=== PATIENT | male | born 1995 | race Caucasian/White ===

== ENCOUNTER 2022-06-09 15:31 | Emergency (ER) | payer OTHER, SELFPAY ==
[2022-06-09 15:35] VITALS: BP 167/100; PULSE 93; RESP 14; TEMP 36.7; O2SAT 97; BMI 31.5
[2022-06-09 16:10] VITALS: BP 134/88; PULSE 76; O2SAT 99
--- NOTE | 2022-06-09 16:22 | W.ED.ABDPA2 ---
HPI - Abdominal Pain General: Chief Complaint: Abdominal Pain Stated Complaint: abd pain Time Seen by Provider: 06/09/22 15:43 History of Present Illness: 26-year-old male who comes in with diffuse abdominal pain and associated diarrhea with nausea. The patient states he drank a large amount of alcohol 2 nights ago. Since that time, he started having crampy diffuse abdominal pain with associated diarrhea. He states had multiple episodes of diarrhea. He is also had associated nausea. He has been drinking fluids but feels like everything is running right through him. He denies melanotic stools or bright red bloody stools. No fever. No prior history of pancreatitis. He denies dysuria or hematuria. Associated Symptoms: Denies fever(s) and vomiting Review of Systems Const: Denies: fever(s) ENMT: Denies: throat pain, ear or mastoid pain, nasal discharge, nasal congestion or sinus pain Card: Denies: chest pain Resp: Denies: dyspnea or wheezing GI: Denies: vomiting Musc: Reports: extremity pain Skin/Breast: Denies: rash Neuro: Denies: headache(s) Psych: Reports: other (Admits to regular alcohol use. Denies daily use.) PFS ED PFSH: Social History Smoking and tobacco status: current every day smoker Alcohol intake: current Physical Exam Const: COMMON NORMALS: no acute distress, patient oriented x3 and healthy appearing GENERAL APPEARANCE: cooperative and comfortable HENMT: OTHER: Mucous membranes are dry. Eye: OTHER: No scleral icterus Resp: COMMON NORMALS: clear to auscultation bilaterally AUSCULTATION: clear to auscultation bilaterally Cardio: COMMON NORMALS: regular rate and regular rhythm RATE: regular rate RHYTHM: regular rhythm GI: OTHER: Normal bowel sounds, abdomen is nondistended. Bilateral lower quadrant abdominal tenderness. No rebound or guarding. Extremity: OTHER: All extremities have full range of motion. He has no peripheral edema. Neuro: COMMON NORMALS: patient oriented x3 Psych: COMMON NORMALS: speech normal SPEECH: Yes normal speech Course Reevaluation(s): Reevaluation #1: Patient complains of persistent lower abdominal pain. Labs are unremarkable. No further vomiting or diarrhea. We will do CT and give him IV morphine. Time: 18:40 Reevaluation #2: Pain is resolved. No further diarrhea. CT shows changes consistent with possible terminal ileitis versus enteritis. Suspect this is more an enteritis type illness. Recommend the patient takes Imodium 4 times daily as needed for diarrhea. He needs to take a daily probiotic. I have instructed him to avoid alcohol, spicy foods, greasy foods, milk products. He should return if his symptoms are worsening. If he has recurrent episodes, he should follow-up with his primary care doctor to get referred to GI for endoscopy. Time: 20:08 Vital Signs: Vital signs: Vital Signs Temperature 98.0 F 06/09/22 15:35 Pulse Rate 72 06/09/22 17:00 Respiratory Rate 18 06/09/22 18:55 Blood Pressure 150/69 06/09/22 17:00 Pulse Oximetry 100 06/09/22 18:55 Oxygen Delivery Me thod 06/09/22 17:00 MDM - Abdominal Pain Medical Decision Making Patient presents with diarrhea in association with bilateral lower quadrant abdominal pain. No melena. Suspect this is more of a gastroenteritis. Abdomen is nonsurgical. Do not feel that imaging is indicated unless his laboratory studies are indicative of possible pancreatitis. Differential includes gastroenteritis, gastritis, colitis, ischemic colitis, pancreatitis Lab Data : 06/09/22 16:20 06/09/22 16:20 Labs/Radiology: Radiology Impressions Abdomen/Pelvis CT 06/09/22 18:39 IMPRESSION: Prominent fluid throughout the small bowel with bowel wall thickening of the terminal ileum suggestive an enteritis or perhaps inflammatory bowel disease depending on the clinical scenario. Laboratory Results WBC 9.4 10^3/uL (4.0-10.0) 06/09/22 16:20 RBC 5.23 10^6/uL (4.1-5.3) 06/09/22 16:20 Hgb 16.0 g/dL (11.7-16.6) 06/09/22 16:20 Hct 47.7 % (42.0-52.0) 06/09/22 16:20 MCV 91.2 fl (80-94) 06/09/22 16:20 MCH 30.6 pg (28.0-34.0) 06/09/22 16:20 MCHC 33.5 g/dL (30.0-36.0) 06/09/22 16:20 RDW 12.0 % (12.1-15.1) L 06/09/22 16:20 Plt Count 264 10^3/cmm (130-400) 06/09/22 16:20 MPV 9.8 fL (7.4-10.4) 06/09/22 16:20 Neut % (Auto) 79.2 % 06/09/22 16:20 Lymph % (Auto) 12.4 % 06/09/22 16:20 Cotton % (Auto) 7.2 % 06/09/22 16:20 Eos % (Auto) 0.6 % 06/09/22 16:20 Baso % (Auto) 0.2 % 06/09/22 16:20 Neut # (Auto) 7.46 10^3/uL (1.8-7.7) 06/09/22 16:20 Lymph # (Auto) 1.2 10^3/uL (0.8-4.8) 06/09/22 16:20 Cotton # (Auto) 0.7 10^3/uL (0.2-0.9) 06/09/22 16:20 Eos # (Auto) 0.1 10^3/uL (0.0-0.8) 06/09/22 16:20 Baso # (Auto) 0.0 10^3/uL (0.0-0.1) 06/09/22 16:20 Nucleated RBC % (auto) 0 % 06/09/22 16:20 Nucleated RBCs # 0.0 /100WBC 06/09/22 16:20 Sodium 136 mmol/L (136-145) 06/09/22 16:20 Potassium 4.5 mmol/L (3.5-5.1) 06/09/22 16:20 Chloride 98 mmol/L (98-107) 06/09/22 16:20 Carbon Dioxide 26 mmol/L (22-29) 06/09/22 16:20 Anion Gap 16.5 (5-19) 06/09/22 16:20 BUN 8 mg/dL (6-20) 06/09/22 16:20 Creatinine 0.8 mg/dL (0.7-1.2) 06/09/22 16:20 GFR Calculation 118.8 mL/min (90-130) 06/09/22 16:20 Glucose 93 mg/dL (65-115) 06/09/22 16:20 Calculated Osmolality 280 mOsm/kg (285-295) L 06/09/22 16:20 Calcium 10.4 mg/dL (8.5-10.5) 06/09/22 16:20 Magnesium 2.2 mg/dL (1.7-2.3) 06/09/22 16:20 Total Bilirubin 0.5 mg/dL (0.15-1.2) 06/09/22 16:20 AST 24 U/L (0-40) 06/09/22 16:20 ALT 71 U/L (0-41) H 06/09/22 16:20 Alkaline Phosphatase 107 U/L (40-130) 06/09/22 16:20 Total Protein 7.7 g/dL (6.6-8.7) 06/09/22 16:20 Albumin 4.7 g/dL (3.5-5.2) 06/09/22 16:20 Globulin 3.0 g/dL (1.3-4.6) 06/09/22 16:20 Lipase 10 U/L (13-60) L 06/09/22 16:20 Urine Color Straw (Yellow) 06/09/22 17:25 Urine Appearance Clear (CLEAR) 06/09/22 17:25 Urine pH 6 (5-7) 06/09/22 17:25 Ur Specific [place] 1.015 (1.005-1.030) 06/09/22 17:25 Urine Protein Neg (Negative) 06/09/22 17:25 Urine Glucose (UA) Norm (Normal) 06/09/22 17:25 Urine Ketones Negative (Negative) 06/09/22 17:25 Urine Blood Neg (Negative) 06/09/22 17:25 Urine Nitrate Negative (Negative) 06/09/22 17:25 Urine Bilirubin Neg (Negative) 06/09/22 17:25 Urine Urobilinogen Norm mg/dL (Negative) 06/09/22 17:25 Ur Leukocyte Esterase Negative (Negative) 06/09/22 17:25 Discharge Plan Discharge Patient Disposition: Home Clinical Impression: Gastroenteritis Condition: Stable Prescriptions: No Action albuterol sulfate 90 mcg/actuation HFA aerosol inhaler 2 inh inhalation Q4H PRN (Reason: shortness of breath or wheezing) Qty: 8.5 0RF Discharge Orders: Discharge ED (Routine); Ordered 06/09/22 Ordered By: Noemí Roblero Discharge Diet: Advance as tolerated Discharge Activity: Increase activity as tolerated Patient Instructions: Gastroenteritis (ED), Opioid Safety, Pain Management Activity Restrictions/Additional Instructions: Drink plenty of fluids. Avoid spicy foods, greasy foods, milk products. Take a daily probiotic. He can take Tylenol or ibuprofen as needed for pain. Take Imodium 4 times daily as needed for the diarrhea. Return if you are having persistent diarrhea, persistent vomiting, worsening pain or persistent fever. Follow-up with your primary care doctor if you have recurrent episodes. 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
[2022-06-09 16:30] LABS: Basophils % 0.2 %; Eosinophils # 0.1 10^3/uL (0.0-0.8); Eosinophils % 0.6 %; Hematocrit 47.7 % (42.0-52.0); Lymphocytes # 1.2 10^3/uL (0.8-4.8); Lymphocytes % 12.4 %; Mean Corpuscular HGB Conc 33.5 g/dL (30.0-36.0); Mean Corpuscular Hemoglobin 30.6 pg (28.0-34.0); Mean Corpuscular Volume 91.2 fl (80-94); Mean Platelet Volume 9.8 fL (7.4-10.4); Monocytes # 0.7 10^3/uL (0.2-0.9); Monocytes % 7.2 %; Neutrophils # 7.46 10^3/uL (1.8-7.7); Neutrophils % 79.2 %; Nucleated Red Blood Cells % 0 %; Platelet Count 264 10^3/cmm (130-400); Red Blood Count 5.23 10^6/uL (4.1-5.3); White Blood Count 9.4 10^3/uL (4.0-10.0)
[2022-06-09] MEDS: loperamide 2 mg Capsule 4 MG PO (16:36)
[2022-06-09] MEDS: pantoprazole 40 mg SDV IVP (16:36)
[2022-06-09] MEDS: ondansetron 2 mg/ML SDV 2 mL 4 MG IVP (16:36)
[2022-06-09] MEDS: sodium chloride 0.9% 1,000 ML 999 ML IV (16:36)
[2022-06-09 16:43] VITALS: PULSE 73; O2SAT 99
[2022-06-09 16:47] LABS: Alanine Aminotransferase 71 U/L (0-41); Albumin Level 4.7 g/dL (3.5-5.2); Alkaline Phosphatase 107 U/L (40-130); Anion Gap 16.5 (5-19); Aspartate Amino Transferase 24 U/L (0-40); Blood Urea Nitrogen 8 mg/dL (6-20); Calcium 10.4 mg/dL (8.5-10.5); Carbon Dioxide 26 mmol/L (22-29); Chloride 98 mmol/L (98-107); Glomerular Filtration Rate 118.8 mL/min (90-130); Glucose 93 mg/dL (65-115); Lipase 10 U/L (13-60); Magnesium 2.2 mg/dL (1.7-2.3); Osmolality Calculated 280 mOsm/kg (285-295); Potassium 4.5 mmol/L (3.5-5.1); Sodium 136 mmol/L (136-145); Total Bilirubin 0.5 mg/dL (0.15-1.2); Total Protein 7.7 g/dL (6.6-8.7)
[2022-06-09 17:00] VITALS: BP 150/69; PULSE 72; O2SAT 98
[2022-06-09 17:32] LABS: Add Urine Microscopic? NO; Charge for UA Resulting for Rev
[2022-06-09 17:34] LABS: Bilirubin Urine Neg (Negative); Blood Urine Neg (Negative); Glucose Urine UA Norm (Normal); Ketones Urine Negative (Negative); Leukocyte Esterase Urine Negative (Negative); Nitrate Urine Negative (Negative); Protein Urine Neg (Negative); Specific Gravity, Urine 1.015 (1.005-1.030); Urine Appearance Clear (CLEAR); Urine Color Straw (Yellow); Urobilinogen Urine Norm (Negative); pH Urine 6 (5-7)
--- NOTE | 2022-06-09 18:39 | CTR_ITS ---
PROCEDURE INFORMATION: Exam: CT Abdomen And Pelvis Without Contrast Exam date and time: 06/09/2022 7:42 PM Age: 26 years old Clinical indication: Abdominal pain; Additional info: Lower abdominal pain TECHNIQUE: Imaging protocol: Computed tomography of the abdomen and pelvis without contrast. Radiation optimization: All CT scans at this facility use at least one of these dose optimization techniques: automated exposure control; mA and/or kV adjustment per patient size (includes targeted exams where dose is matched to clinical indication); or iterative reconstruction. COMPARISON: No relevant prior studies available. RADIATION DOSE METRICS: Total DLP (mGy-cm): 825.73 FINDINGS: Liver: Normal. No mass. Gallbladder and bile ducts: Normal. No calcified stones. No ductal dilation. Pancreas: Normal. No ductal dilation. Spleen: Normal. No splenomegaly. Adrenal glands: Normal. No mass. Kidneys and ureters: Normal. No hydronephrosis. Stomach and bowel: Prominent fluid throughout the small bowel with bowel wall thickening of the terminal ileum suggestive an enteritis or perhaps inflammatory bowel disease depending on the clinical scenario. Appendix: No evidence of appendicitis. Intraperitoneal space: Unremarkable. No free air. No significant fluid collection. Vasculature: Unremarkable. No abdominal aortic aneurysm. Lymph nodes: Unremarkable. No enlarged lymph nodes. Urinary bladder: Unremarkable as visualized. Reproductive: Unremarkable as visualized. Bones/joints: Unremarkable. No acute fracture. Soft tissues: Unremarkable. CT/CT abdomen pelvis con [id number] IMPRESSION: Prominent fluid throughout the small bowel with bowel wall thickening of the terminal ileum suggestive an enteritis or perhaps inflammatory bowel disease depending on the clinical scenario.
[2022-06-09 18:55] VITALS: RESP 18; O2SAT 100
[2022-06-09] MEDS: ketorolac 30 mg/mL INJ 15 MG IVP (18:55)
[2022-06-09] MEDS: morphine 4 mg/mL SDV 1 mL IVP (18:55)
== END 2022-06-09 20:15 | disposition home or self-care (01) ==
PROVIDERS: Emergency Provider Emergency Medicine
DX: K52.9 Noninfective gastroenteritis and colitis, unspecified (principal); F17.200 Nicotine dependence, unspecified, uncomplicated
CPT/HCPCS: 74176; 80053; 81003; 83690; 83735; 85025; 96361; 96374; 96375; 99285; C9113; J1885; J2270; J2405; J7030

== ENCOUNTER → 2025-04-05 15:28 | Outpatient (BNVA) | payer OTHER, SELFPAY | DX: R39.9 Unspecified symptoms and signs involving the genitourinary system (principal); R35.0 Frequency of micturition; R30.0 Dysuria | CPT/HCPCS: 81000; 82962; 84153; 87086 ==

== ENCOUNTER → 2025-04-29 13:26 | Outpatient (BNVA) | payer OTHER, SELFPAY | PROVIDERS: PCP Family Medicine; Visit Provider Family Medicine | DX: Z13.6 Encounter for screening for cardiovascular disorders (principal) | CPT/HCPCS: 80053; 80061; 84439; 84443; 85025 ==